=== PATIENT | female | born 2000 | race Hispanic/Latino ===

== ENCOUNTER 2021-10-12 20:09 | Observation (INO) | payer BC, MEDICAID ==
[~2021-10-12] VITALS: Ht 162.6 cm; Wt 68.0 kg
[2021-10-12] MEDS ORDERED: LACTATED RINGERS 1000ML IV PRN (20:30)
[2021-10-12 21:15] LABS: APPEARANCE,URINE CLEAR (CLEAR); BILIRUBIN,URINE NEGATIVE (NEGATIVE); COLOR,URINE YELLOW (YELLOW); GLUCOSE, URINE (UA) NEGATIVE (NEGATIVE); KETONES,URINE NEGATIVE (NEGATIVE); LEUKOCYTE ESTERASE ,URINE SMALL (NEGATIVE); NITRATE,URINE NEGATIVE (NEGATIVE); OCCULT BLOOD,URINE NEGATIVE (NEGATIVE); PH,URINE 7.5 (5.0-8.0); PROTEIN,URINE NEGATIVE (NEGATIVE); UROBILINOGEN,URINE 0.2 mg/dL (0.2-1.0)
[2021-10-12 21:26] LABS: BACTERIA,URINE Few /HPF (None Seen); RBC,URINE 0-1 /HPF (0-1); SQUAMOUS EPITHELIAL CELL,UR Few /HPF (0-2); TRANSITIONAL EPI CELLS,URINE Rare /HPF (None Seen)
[2021-10-12 21:47] LABS: HEMATOCRIT 36.5 % (36-48); MEAN CORPUSCULAR HEMOGLOBIN 31.1 pg (27.0-33.0); MEAN CORPUSCULAR HGB CONC 32.9 g/dL (32.0-36.0); MEAN CORPUSCULAR VOLUME 94.6 fL (80-100); RED BLOOD CELL COUNT(AUTO) 3.86 MIL/uL (4.00-5.50); RED CELL DISTRIBUTION WIDTH 14.3 % (11.0-15.5); WHITE BLOOD COUNT (AUTO) 13.4 K/uL (4.8-10.8)
[2021-10-13 03:12] VITALS: BP 118/68
== END 2021-10-13 08:30 | disposition home or self-care (01) ==
LOC: EDH 20:09 → LDH 20:10
PROVIDERS: ADMIT Obstetrics & Gynecology; ATTEND Obstetrics & Gynecology
DX: O60.03 Preterm labor without delivery, third trimester (principal); Z3A.39 39 weeks gestation of pregnancy
CPT/HCPCS: 36415; 81001; 85027; 86592; 86850; 86900; 86901; 87340; 96360; 96361 ×2; G0378 ×12; G0379; J7120 ×2

== ENCOUNTER 2021-10-15 18:10 | Inpatient (IN) | payer BC, MEDICAID ==
[~2021-10-15] VITALS: Ht 160 cm; Wt 66.7 kg
[2021-10-15] MEDS ORDERED: NALOXONE HCL 0.4 MG/1 ML ML IV PRN (19:00)
[2021-10-15] MEDS ORDERED: LACTATED RINGERS 1000ML 1,000 ML IV PRN (19:00)
[2021-10-15] MEDS ORDERED: PROMETHAZINE HCL 25 MG/ML 1ML AMPULE IM PRN (19:00)
[2021-10-15] MEDS ORDERED: LACTATED RINGERS 500 ML 500 ML IV PRN (19:00)
[2021-10-15] MEDS ORDERED: MEPERIDINE-PF 50 MG/ML SYG IVP PRN (19:00)
[2021-10-15] MEDS ORDERED: OXYTOCIN-LR 20 UNITS/1000 ML 1,000 ML IV SCH (19:00)
[2021-10-15] MEDS ORDERED: EPHEDRINE SULFATE 50 MG/ML AMPULE IVP PRN (19:00)
[2021-10-15 19:05] LABS: APPEARANCE,URINE SL CLOUDY (CLEAR); BILIRUBIN,URINE NEGATIVE (NEGATIVE); COLOR,URINE YELLOW (YELLOW); GLUCOSE, URINE (UA) NEGATIVE (NEGATIVE); KETONES,URINE NEGATIVE (NEGATIVE); LEUKOCYTE ESTERASE ,URINE NEGATIVE (NEGATIVE); NITRATE,URINE NEGATIVE (NEGATIVE); OCCULT BLOOD,URINE SMALL (NEGATIVE); PH,URINE 7.5 (5.0-8.0); PROTEIN,URINE NEGATIVE (NEGATIVE)
[2021-10-15 19:10] LABS: HEMATOCRIT 36.2 % (36-48); MEAN CORPUSCULAR HEMOGLOBIN 31.3 pg (27.0-33.0); MEAN CORPUSCULAR HGB CONC 32.9 g/dL (32.0-36.0); MEAN CORPUSCULAR VOLUME 95.3 fL (80-100); RED BLOOD CELL COUNT(AUTO) 3.8 MIL/uL (4.00-5.50); RED CELL DISTRIBUTION WIDTH 14.3 % (11.0-15.5); WHITE BLOOD COUNT (AUTO) 11.3 K/uL (4.8-10.8)
[2021-10-15 19:15] LABS: BACTERIA,URINE Few /HPF (None Seen); MUCUS,URINE Few LPF (None Seen); SQUAMOUS EPITHELIAL CELL,UR Few /HPF (0-2)
[2021-10-15 19:57] VITALS: BP 98/54
[2021-10-15] MEDS ORDERED: DINOPROSTONE 10 MG VAGINAL SUPP VG SCH (20:30)
[2021-10-16] MEDS ORDERED: OXYTOCIN-LR 20 UNITS/1000 ML 1,000 ML IV SCH ×2 (08:00→17:00)
[2021-10-16] MEDS ORDERED: ROPIVACAINE 0.2% 100ML VIAL 100 ML EP SCH (09:30)
[2021-10-16] MEDS ORDERED: LIDOCAINE HCL 1% MDV 50ML VIAL ONE (15:12)
[2021-10-16] MEDS ORDERED: MISOPROSTOL 200 MCG TABLET ONE (15:13)
[2021-10-16] MEDS ORDERED: DIPH,PERTUSS(ACELL),TET VAC/PF 0.5 ML VIAL IM PRN (17:00)
[2021-10-16] MEDS ORDERED: WITCH HAZEL 1 PAD TP PRN (17:00)
[2021-10-16] MEDS ORDERED: BENZOCAINE/LANOLIN/ALOE VERA 60 ML AEROSOL TP PRN (17:00)
[2021-10-16] MEDS ORDERED: ACETAMINOPHEN 325 MG TAB PO PRN (17:00)
[2021-10-16] MEDS ORDERED: LANOLIN 30GM OINTMENT TP PRN (17:00)
[2021-10-16] MEDS ORDERED: MEASLES/MUMPS/RUBELLA VACCINE, LIVE 0.5 ML/VIAL SQ PRN (17:00)
[2021-10-16] MEDS ORDERED: ACETAMINOPHEN WITH CODEINE 1 TAB TAB PO PRN (17:00)
[2021-10-16] MEDS: IBUPROFEN 600 MG TABLET PO PRN (19:21)
[2021-10-16 19:30] VITALS: BP 120/75
[2021-10-16] MEDS ORDERED: PREN-154 PO (20:23)
[2021-10-16] MEDS: DOCUSATE SODIUM 100 MG CAP PO SCH (21:19)
[2021-10-16 23:02] VITALS: BP 107/59
[2021-10-17 02:50] VITALS: BP 100/62
[2021-10-17 06:14] LABS: HEMATOCRIT 31.5 % (36-48); MEAN CORPUSCULAR HEMOGLOBIN 31.8 pg (27.0-33.0); MEAN CORPUSCULAR HGB CONC 33.3 g/dL (32.0-36.0); MEAN CORPUSCULAR VOLUME 95.5 fL (80-100); RED BLOOD CELL COUNT(AUTO) 3.3 MIL/uL (4.00-5.50); RED CELL DISTRIBUTION WIDTH 14.2 % (11.0-15.5); WHITE BLOOD COUNT (AUTO) 15.7 K/uL (4.8-10.8)
[2021-10-17] MEDS: IBUPROFEN 600 MG TABLET PO PRN ×2 (06:14→16:55)
[2021-10-17 07:36] VITALS: BP 109/75
[2021-10-17] MEDS: DOCUSATE SODIUM 100 MG CAP PO SCH ×2 (07:52→21:02)
[2021-10-17 10:56] VITALS: BP 99/60
[2021-10-17] MEDS ORDERED: METHYLERGONOVINE MALEATE 0.2 MG/1 ML ML IM ONE (11:49)
[2021-10-17 16:40] VITALS: BP 102/54
[2021-10-17 19:18] VITALS: BP 96/53
[2021-10-17 23:20] VITALS: BP 126/67
[2021-10-18] MEDS: IBUPROFEN 600 MG TABLET PO PRN ×2 (03:24→09:41)
[2021-10-18 03:49] VITALS: BP 113/71
[2021-10-18 07:50] VITALS: BP 109/71
[2021-10-18] MEDS: DOCUSATE SODIUM 100 MG CAP PO SCH (09:40)
[2021-10-18] MEDS ORDERED: IBUP-2077 PO (10:51)
[2021-10-18] MEDS ORDERED: DOCU-116 PO (10:51)
[2021-10-18 11:45] VITALS: BP 105/73
[2021-10-18 12:00] VITALS: BP 105/73
== END 2021-10-18 11:50 | disposition home or self-care (01) | DRG 807 ==
LOC: LDH 18:10 → WSH 10-16 19:30
PROVIDERS: ADMIT Obstetrics & Gynecology; ATTEND Obstetrics & Gynecology
PROC: 10E0XZZ Delivery of Products of Conception, External Approach (ICD-10-PCS; principal; 2021-10-16)
PROC: 10907ZC Drainage of Amniotic Fluid, Therapeutic from Products of Conception, Via Natural or Artificial Opening (ICD-10-PCS; 2021-10-16)
PROC: 0UQMXZZ Repair Vulva, External Approach (ICD-10-PCS; 2021-10-16)
PROC: 3E0R3BZ Introduction of Anesthetic Agent into Spinal Canal, Percutaneous Approach (ICD-10-PCS; 2021-10-16)
PROC: 00HU33Z Insertion of Infusion Device into Spinal Canal, Percutaneous Approach (ICD-10-PCS; 2021-10-16)
PROC: 0KQM0ZZ Repair Perineum Muscle, Open Approach (ICD-10-PCS; 2021-10-16)
DX: O70.1 Second degree perineal laceration during delivery (principal); Z37.0 Single live birth; O71.82 Other specified trauma to perineum and vulva; Z3A.40 40 weeks gestation of pregnancy
CPT/HCPCS: 36415; 81001; 85027; 86592; 86850; 86900; 86901; 87340; 96360; 96361; A4314; A4351; G0378; G0379; J2175; J2210; J2550; J2590; J2795; J3490; J7120

== ENCOUNTER 2023-01-12 16:46 | Observation (INO) | payer BC, MEDICAID ==
[~2023-01-12] VITALS: Ht 160 cm; Wt 60.3 kg
[~2023-01-12 16:46] MED LIST: DOCU-116 PO; IBUP-2077 PO; PREN-154 PO
[2023-01-12 17:13] VITALS: BP 116/64; PULSE 124; RESP 16; O2SAT 98
[2023-01-12 18:07] LABS: APPEARANCE,URINE CLEAR (CLEAR); BILIRUBIN,URINE NEGATIVE (NEGATIVE); COLOR,URINE LIGHT-YELLOW (YELLOW); GLUCOSE, URINE (UA) NEGATIVE (NEGATIVE); KETONES,URINE NEGATIVE (NEGATIVE); LEUKOCYTE ESTERASE ,URINE 75 Leu/uL (NEGATIVE); NITRATE,URINE NEGATIVE (NEGATIVE); OCCULT BLOOD,URINE SMALL (NEGATIVE); PROTEIN,URINE NEGATIVE (NEGATIVE); UROBILINOGEN,URINE 0.2 mg/dL (0.2-1.0)
[2023-01-12 18:13] LABS: ADD UA MICROSCOPIC YES
[2023-01-12 18:25] LABS: BACTERIA,URINE RARE /HPF (None Seen); RBC,URINE 0-1 /HPF (0-1); SQUAMOUS EPITHELIAL CELL,UR FEW /HPF (0-2)
== END 2023-01-12 19:50 | disposition home or self-care (01) ==
LOC: EDH 16:46 → LDH 16:47
PROVIDERS: ADMIT Obstetrics & Gynecology; ATTEND Obstetrics & Gynecology
DX: O35.CXX0 Maternal care for other (suspected) fetal abnormality and damage, fetal pulmonary anomalies, not applicable or unspecified (principal); O36.8330 Maternal care for abnormalities of the fetal heart rate or rhythm, third trimester, not applicable or unspecified; Z3A.34 34 weeks gestation of pregnancy
CPT/HCPCS: 59025; 87088; 81001; 76819; G0378 ×2